=== PATIENT | male | born 1940 | race Caucasian/White ===

== ENCOUNTER 2022-11-22 14:09 | Emergency (ER) | payer MEDICARE, OTHER, SELFPAY ==
[2022-11-22 14:11] VITALS: BP 157/68; PULSE 50; RESP 16; TEMP 36.4; O2SAT 99; BMI 23.8
--- NOTE | 2022-11-22 14:27 | EX.ED.DYSGE1 ---
HPI History of Present Illness Chief Complaint: Syncope Detail of Chief Complaint: Syncope Informant: patient Narrative Narrative: Patient presents to the emergency department via EMS from [facility] with a syncopal episode. Patient states that he was standing during the entire service when he started feeling lightheaded and woozy and felt like he was going to pass out. Patient states that he tried to sit down in a chair and then while in the chair passed out. He did not fall or hit his head. Per his family member there he was out for about a minute. No seizure-like activity. Patient states that he had a similar episode in [facility] about 8 months ago. Patient denies recent illness. He denies chest pain. Denies palpitations. Denies recent illness. Prior similar symptoms: Yes PFSH [facility] Medical History (Updated 11/22/22 @ 16:[address] Ciara Del Angel, DO) History of cataract Allergy/AdvReac Type Severity Reaction Status Date / Time No Known Allergies Allergy Verified 11/22/22 14:11 Surgical History (Updated 11/22/22 @ 14:36 by Beverly Shankar) H/O hernia repair History of bladder surgery Social History Smoking Status: Never smoker ROS ROS ED Review of Systems ROS Unobtainable: other Constitutional Constitutional ED: Reports lethargy; Denies chills, fever(s), sweats or weight loss Eyes Eyes: Denies blurry vision, change in vision or diplopia ENT ENT ED: Denies rhinorrhea or sore throat Cardiovascular Cardiovascular: Denies chest pain, orthopnea or racing heartbeat Respiratory/Chest Respiratory/Chest: Denies cough, dyspnea, dyspnea on exertion, orthopnea or sputum Gastrointestinal Gastrointestinal: Denies abdominal pain, diarrhea, nausea or vomiting Genitourinary Genitourinary ED: Denies dysuria, hematuria or urinary frequency Musculoskeletal Musculoskeletal: Denies arthralgias, back pain, myalgias or neck pain Integumentary Denies abscess, Abrasions or rash Neurologic Neurologic: Denies headache(s) or weakness Psychiatric Psychiatric: Denies anxiety, depression or suicidal thoughts Endocrine Endocrinology: Denies polydipsia, polyphagia or polyuria Hematologic/Lymphatic Hematologic/Lymphatic: Denies easy bleeding, easy bruising or lymphadenopathy Allergic/Immunologic Allergic/Immunologic ED: Denies mouth swelling, tongue swelling or urticaria EXAM Physical Exam Const Vital Signs: 11/22/22 14:11 11/22/22 14:37 11/22/22 14:38 Temperature 97.6 F L Temperature Source Oral Pulse Rate 50 L Pulse Rate [Lying] 50 L Pulse Rate [Sitting (for 1 minute prior to obtaining)] 52 L Pulse Rate [Standing (for 1 minute prior to obtaining)] 60 Respiratory Rate 16 Respiratory Effort Normal Respiratory Pattern Normal Blood Pressure 157/68 H Blood Pressure [Lying] 127/73 H Blood Pressure [Sitting (for 1 minute prior to obtaining)] 144/77 H Blood Pressure [Standing (for 1 minute prior to obtaining)] 97/47 L Blood Pressure Mean 97 Blood Pressure Mean [Lying] 91 Blood Pressure Mean [Sitting (for 1 minute prior to obtaining)] 99 Blood Pressure Mean [Standing (for 1 minute prior to obtaining)] 63 Pulse Ox 99 Oxygen Delivery Method Room Air 11/22/22 16:11 Temperature Temperature Source Pulse Rate Pulse Rate [Lying] 68 Pulse Rate [Sitting (for 1 minute prior to obtaining)] 62 Pulse Rate [Standing (for 1 minute prior to obtaining)] 56 L Respiratory Rate Respiratory Effort Respiratory Pattern Blood Pressure Blood Pressure [Lying] 142/88 H Blood Pressure [Sitting (for 1 minute prior to obtaining)] 155/83 H Blood Pressure [Standing (for 1 minute prior to obtaining)] 132/67 H Blood Pressure Mean Blood Pressure Mean [Lying] 106 Blood Pressure Mean [Sitting (for 1 minute prior to obtaining)] 107 Blood Pressure Mean [Standing (for 1 minute prior to obtaining)] 88 Pulse Ox Oxygen Delivery Method Positive well nourished and well developed General Appearance ED: well developed and NAD HEENT Reports TM's clear and moist mucous membranes normocephalic and atraumatic; Negative for trauma or tenderness Tympanic Membrane ED: Yes TM's clear Eyes PERRL and EOMs intact bilaterally General Eye ED: Negative for pale conjunctiva or scleral icterus Neck no lymphadenopathy, supple and no JVD General: Negative for tenderness Chest Wall inspection of chest normal and palpation of chest normal Chest: Negative for tenderness Resp normal respiratory effort and clear to auscultation bilaterally Effort and Inspection: Negative for respiratory distress or pain with movement Auscultation: Negative for rhonchi, wheezes or diminished lung sounds Cardio regular rhythm, S1 normal heart sound, S2 normal heart sound and no murmurs Rate: bradycardia Peripheral Pulses: pulses 2+ throughout GI normal to inspection, nondistended, normoactive bowel sounds, soft to palpation, non-tender, non-distended and no masses Back/Spine no CVA tenderness and no thoracic nor lumbar tenderness Extremity normal to inspection General Extremety ED: Negative for edema General Extremity: Negative for edema Neuro oriented x3, CN's II-XII intact bilaterally, no sensory deficits noted and gait normal Sensorium / Orientation: awake, alert, oriented to person, oriented to place and oriented to time Motor Exam: strength 5/5 throughout and strength abnormal Psych mental status grossly normal Skin no rashes or lesions noted and no wounds MDM MDM MDM Narrative Medical decision making narrative: Patient presents with syncopal episode. Prior similar episode about 8 months ago. Clinically suspect likely vasovagal episode. He feels significantly improved currently. EKG obtained on arrival showed a sinus rhythm with a rate of 60 bpm with right bundle branch block otherwise no acute ST segment changes. IV line will be established. Patient will be placed on playground monitor. Basic labs will be ordered patient will be given a liter fluid bolus and orthostatic vitals will be obtained. CBC with differential obtained was unremarkable. Chemistries unremarkable. Troponin was normal. Initial orthostatics were positive therefore he was given liter fluid bolus. After fluid bolus orthostatics were repeated and negative and patient ambulated without any difficulty and without dizziness. Clinically feels back to his baseline. Patient will be discharged to home. Suspect likely vasovagal episode. Patient advised to follow-up with primary care physician within next 3 to 5 days. Patient to push fluids. Patient to return if repeat syncope, chest pain, palpitations, or condition worsen anyway Lab Data Labs: Laboratory Results - last 24 hr 11/22/22 14:20 WBC 7.1 RBC 3.70 L Hgb 11.3 L Hct 34.1 L MCV 92.2 MCH 30.5 MCHC 33.1 RDW Std Deviation 49.0 H RDW Coeff of Cammie 14.4 Plt Count 186 MPV 10.5 Immature Gran % (Auto) 0.100 Neut % (Auto) 57.5 Lymph % (Auto) 30.9 Leon % (Auto) 8.2 Eos % (Auto) 2.7 Baso % (Auto) 0.6 Absolute Neuts (auto) 4.1 Absolute Lymphs (auto) 2.20 Nucleated RBC % 0 Sodium 133 L Potassium 3.7 Chloride 103 Carbon Dioxide 26.0 Anion Gap 4 L BUN 18 Creatinine 1.25 Estim Creat Clear Calc 46.23 Est GFR (MDRD) Af Amer 71 Est GFR (MDRD) Non-Af 59 L BUN/Creatinine Ratio 14.4 Glucose 117 H Calcium 8.4 L Troponin I High Sens 6 Discharge Plan Triage Chief Complaint: Syncope ED Provider: Ciara Del Angel Dx/Rx/DC Orders Clinical Impression: Syncope, vasovagal, Orthostatic hypotension Instructions: Orthostatic Hypotension, ED Fainting, Vagal Reaction Primary Care Provider: JUDITH COLON Referrals: [facility] Doctor,Out of [Non-Staff] - Activity Restrictions/Additional Instructions: Follow-up with your primary care physician within next 3 to 5 days. Disposition Disposition: Home, Self Care
[2022-11-22] MEDS: 0.9% Normal Saline 1,000 ML 1000 ML IV (14:32)
[2022-11-22 14:36] LABS: Absolute Neutrophil Count 4.1 X10^3/uL (2.0-7.7); Basophil# 0.04 X10^3/uL; Basophil% 0.6 % (0-1); Eosinophil# 0.19 X10^3/uL; Eosinophils% 2.7 % (0-5); Hematocrit 34.1 % (40-54); Hemoglobin 11.3 g/dL (13.0-16.5); Lymphocyte % 30.9 % (19-41); Mean Corp Hgb Conc 33.1 g/dL (32-36); Mean Corpuscular Hgb 30.5 pg (27.0-32.0); Mean Corpuscular Volume 92.2 fL (80-94); Mean Platelet Vol. 10.5 fl (6.2-12.0); Monocyte# 0.58 X10^3/uL; Monocyte% 8.2 % (0-10); NRBC Flagged by Analyzer 0 % (0-5); Neutrophil # 4.09 X10^3/uL (2.7-7.7); Neutrophil % 57.5 % (47-70); Platelet Count 186 K/mm3 (150-450); RBC Distribution Width CV 14.4 % (11.6-14.6); White Blood Count 7.1 K/mm3 (4.4-11.0)
[2022-11-22 14:38] VITALS: BP 127/73; BP 144/77; BP 97/47; PULSE 50; PULSE 52; PULSE 60
[2022-11-22 14:52] LABS: Anion Gap 4 (5-15); BUN 18 mg/dL (7-18); BUN/Creat Ratio 14.4 RATIO (10-20); Calcium,Total 8.4 mg/dL (8.5-10.1); Chloride 103 mmol/L (98-107); Creatinine, Serum 1.25 mg/dL (0.70-1.30); EST Glomerular Filtration Rate 59 mL/min (>60); Est Glom Filt Rate - Afr Amer 71 mL/min (>60); Estimated Creatinine Clearance 46.23 ml/min; Glucose 117 mg/dL (74-106); Potassium 3.7 mmol/L (3.5-5.1); Sodium Level 133 mmol/L (136-145); Troponin-I HS 6 pg/mL (3.0-78.0)
[2022-11-22 16:11] VITALS: BP 132/67; BP 142/88; BP 155/83; PULSE 56; PULSE 62; PULSE 68
[2022-11-22 16:43] VITALS: BP 130/90; PULSE 62; RESP 16; O2SAT 99
== END 2022-11-22 16:54 | disposition home or self-care (01) ==
PROVIDERS: Emergency Provider Emergency Medicine; Visit Provider Emergency Medicine
DX: R55 Syncope and collapse (principal)
CPT/HCPCS: 80048; 84484; 85025; 93005; 96360; 96361; 99285; J7030; A4216